=== PATIENT | female | born 1945 | race Caucasian/White ===

== ENCOUNTER 2020-11-28 21:50 | Observation (INO) ==
--- NOTE | 2020-11-28 22:30 | Emergency Department Note ---
Impression & Plan Retrosternal chest pain, SOB (shortness of breath), Acute electrocardiogram changes ED Provider Note INFORMANT: Patient and ED PROVIDER(S): Abhinav Avalos MD CHIEF COMPLAINT: Allergic reaction PLAN: Disposition: Admitted Condition: Good Outpatient prescription management: None Referral: none MEDICAL DECISION MAKING: The patient presented because of complaints of possible allergic reaction. She will noted chest pain and tightness with shortness of breath and felt it was r elated to the type food that she was eating. The patient described an overwhelming sense of impending doom during the episode. There was nothing from a symptomatic standpoint to support allergic reaction otherwise. The patient had prehospital monitoring performed. Her inferolateral ST and T wave segments were abnormal. She had T wave inversions inferiorly and some depression inferolaterally. Her ECG performed here when she was symptom-free showed resolution of those issues. The patient did receive aspirin prehospital. Currently she is doing well. Her CBC, chemistry panel, LFTs, lipase and troponin were negative. She will need further management in the hospital. I discussed this with her . They were in agreement. Consultation was made with Dr. Kleber Cote of the [facility] service. Patient was evaluated in the ER for further management. Triage Nursing notes reviewed and agree them. Vital Signs: reviewed and remarkable for no significant abnormalities Differential diagnosis: Allergic reaction, Cardiac ischemia, aortic dissection, pulmonary embolism, pneumothorax, pneumonia, pericarditis, myocarditis, esophageal rupture, GERD, cholecystitis, pancreatitis, musculoskeletal, as well as other pathologies. Diagnostics interpreted by me: ECG: Rate: 67 Rhythm:Normal sinus [place]:Normal QRS:Normal ST segements:No elevation or depression Other:No PACs or PVCs Cardiac Monitoring: Cardiac monitoring ordered by me: The patient was placed on continuous cardiac monitoring and observed. It revealed a normal sinus rhythm at 70 beats per minute without ectopy or evidence of dysrhythmia. Imaging studies: Chest x-ray. Findings: A chest x-ray was performed and revealed no pneumothorax, effusion, infiltrate, pulmonary edema, free air under the diaphragm, or wide mediastinum. Impression: No acute disease. HPI: The patient is a 74 year old female who presents to the Emergency Room with complaints of chest tightness. This started tonight and occurred after eating taiwanese food. The patient also notes the following associated symptoms, SOB, throat tightness. The patient has been benadryl and aspirin by EMS relieving factors. Current pain is rated as 10/10. Pt denies LOC, headache, fevers, chills, diaphoresis, visual changes, neck pain, nausea, vomiting, abdominal pain, back pain, melena, hematochezia, urinary symptoms, numbness, weakness, lymphadenopathy, rash, or other complaints. ROS: See above HPI for pertinent positives & negatives. A total of 10 systems reviewed and were otherwise negative. PAST MEDICAL HISTORY:See Below , MS PAST SURGICAL HISTORY:See Below, FAMILY HISTORY:See Below SOCIAL HISTORY:See Below, Quit smoking HOME MEDICATIONS:See Below ALLERGIES:See Below VITALS:See Below PHYSICAL EXAMINATION: GENERAL: Awake, tired-appearing, in no distress HENT: Normocephalic, atraumatic. Oropharynx unremarkable. EYES: Normal conjunctiva. Sclera non-icteric. NECK: Inspection normal. Non-tender. Supple. No nuchal rigidity. FROM. No masses. RESPIRATORY: Clear to auscultation. No wheezes. No rales. Normal respiratory effort. CARDIAC: Normal rate. Normal rhythm. No murmurs. No rubs. Extremities warm and well perfused. Pulses equal. No JVD. GI: Soft, non-distended. No tenderness to palpation. No rebound or guarding. No masses. RECTAL: Deferred. MUSCULOSKELETAL: Atraumatic. Chest examination reveals no tenderness. The back is symmetrical on inspection without obvious abnormality. There is no CVA tenderness to palpation. No joint edema. LOWER EXTREMITIES: Calves are equal size bilaterally and non-tender. No edema. No discoloration. NEURO: Normal sensorium. No sensory or motor deficits noted. SKIN: No rash or jaundice noted. Abhinav Avalos MD Past Med/Surg History Social History Smoking Status: Former smoker Results & Data (ED) Vital Signs Vital Signs - 24 hr 11/28/20 22:00 11/28/20 22:06 11/28/20 22:51 Temperature 36.8 C Temperature Source Oral Pulse Rate 82 Pulse Rate [Right Finger] Pulse Rhythm Regular Pulse Strength Normal Respiratory Rate 20 Respiratory Effort / Characteristics Non-Labored Respiratory Depth Normal Respiratory Pattern Regular Blood Pressure 151/90 H Blood Pressure [Right Arm] Blood Pressure Mean 110 Blood Pressure Mean [Right Arm] Blood Pressure Position Lying Pulse Oximetry 96 Oxygen Delivery Method Room Air Room Air Room Air Sepsis Recent Fever Within 48 Hours No Sepsis New/Unexplained Change in Mental Status No Sepsis Action Taken by Nursing No Action Required 11/28/20 23:20 Temperature Temperature Source Pulse Rate Pulse Rate [Right Finger] 70 Pulse Rhythm Pulse Strength Respiratory Rate 20 Respiratory Effort / Characteristics Respiratory Depth Respiratory Pattern Blood Pressure Blood Pressure [Right Arm] 117/79 Blood Pressure Mean Blood Pressure Mean [Right Arm] 91 Blood Pressure Position Pulse Oximetry 97 Oxygen Delivery Method Room Air Sepsis Recent Fever Within 48 Hours Sepsis New/Unexplained Change in Mental Status Sepsis Action Taken by Nursing Laboratory Data Result diagrams: 11/28/20 22:43 11/28/20 22:43 Lab Results 11/28/20 11/28/20 11/28/20 Range/Units 22:43 22:43 22:43 WBC 3.95 L (4.8-10.8) K/uL RBC 3.92 L (4.2-5.4) M/uL Hgb 12.4 (12.0-16.0) g/dL Hct 37.1 (37-47) % MCV 94.6 (80-100) fL MCH 31.6 (25-34) pg MCHC 33.4 (32-36) g/dL RDW Std Deviation 44.1 (36.4-46.3) fL RDW Coeff of Eulalio 12.8 (11.5-14.5) % Plt Count 210 (130-400) K/uL MPV 10.4 (7.4-10.4) fL Immature Gran % (Auto) 0.3 % Neut % (Auto) 54.3 % Lymph % (Auto) 28.4 % [place] % (Auto) 10.1 % Eos % (Auto) 6.6 % Baso % (Auto) 0.3 % Neut # (Auto) 2.15 (1.4-6.5) K/uL Lymph # (Auto) 1.12 L (1.2-3.4) K/uL [place] # (Auto) 0.40 (0.11-0.59) K/uL Eos # (Auto) 0.26 (0-0.5) K/uL Baso # (Auto) 0.01 (0-0.2) K/uL Immature Gran # (Auto) 0.01 (0.00-0.02) K/uL APTT 33.6 H (21.0-31.0) Seconds PTT Ratio 1.3 Sodium 141 (136-145) mmol/L Potassium 3.5 (3.5-5.1) mmol/L Chloride 107 (98-107) mmol/L Carbon Dioxide 27 (21-32) mmol/L Anion Gap 8.0 (3-11) BUN 17 (7-18) mg/dl Creatinine 0.52 L (0.6-1.2) mg/dl Est Cr Clr Drug Dosing 77.3 ml/min Est GFR ( Amer) 110.6 ml/min Est GFR (Non-Af Amer) 95.5 ml/min BUN/Creatinine Ratio 33.3 H (10-20) Glucose 102 H (70-99) mg/dl Calcium 9.1 (8.5-10.1) mg/dl Total Bilirubin 0.3 (0.2-1) mg/dl AST 19 (15-37) U/L ALT 24 (12-78) U/L Alkaline Phosphatase 54 (45-117) U/L Troponin I < 0.015 (0-0.045) ng/ml Total Protein 7.0 (6.4-8.2) gm/dl Albumin 3.6 (3.4-5.0) gm/dl Globulin 3.4 (2.5-4.0) gm/dl Albumin/Globulin Ratio 1.1 (0.9-2) Lipase 216 (73-393) U/L COVID-19 Eval Order 11/28/20 Range/Units 23:35 WBC (4.8-10.8) K/uL RBC (4.2-5.4) M/uL Hgb (12.0-16.0) g/dL Hct (37-47) % MCV (80-100) fL MCH (25-34) pg MCHC (32-36) g/dL RDW Std Deviation (36.4-46.3) fL RDW Coeff of Eulalio (11.5-14.5) % Plt Count (130-400) K/uL MPV (7.4-10.4) fL Immature Gran % (Auto) % Neut % (Auto) % Lymph % (Auto) % [place] % (Auto) % Eos % (Auto) % Baso % (Auto) % Neut # (Auto) (1.4-6.5) K/uL Lymph # (Auto) (1.2-3.4) K/uL [place] # (Auto) (0.11-0.59) K/uL Eos # (Auto) (0-0.5) K/uL Baso # (Auto) (0-0.2) K/uL Immature Gran # (Auto) (0.00-0.02) K/uL APTT (21.0-31.0) Seconds PTT Ratio Sodium (136-145) mmol/L Potassium (3.5-5.1) mmol/L Chloride (98-107) mmol/L Carbon Dioxide (21-32) mmol/L Anion Gap (3-11) BUN (7-18) mg/dl Creatinine (0.6-1.2) mg/dl Est Cr Clr Drug Dosing ml/min Est GFR ( Amer) ml/min Est GFR (Non-Af Amer) ml/min BUN/Creatinine Ratio (10-20) Glucose (70-99) mg/dl Calcium (8.5-10.1) mg/dl Total Bilirubin (0.2-1) mg/dl AST (15-37) U/L ALT (12-78) U/L Alkaline Phosphatase (45-117) U/L Troponin I (0-0.045) ng/ml Total Protein (6.4-8.2) gm/dl Albumin (3.4-5.0) gm/dl Globulin (2.5-4.0) gm/dl Albumin/Globulin Ratio (0.9-2) Lipase (73-393) U/L COVID-19 Eval Order Covid19 at [facility] Discharge Plan Visit Data Chief Complaint: Allergic Reaction Stated Complaint: SHORT OF BREATH/CHEST TIGHTNESS ED Provider: Abhinav Avalos Discharge Problem: Retrosternal chest pain, SOB (shortness of breath), Acute electrocardiogram changes Forms Stand Alone Forms: [facility] Referrals Referrals: PCP,NO [Primary Care Provider] -
[2020-11-28 22:56] LABS: Basophils # (auto) 0.01 K/uL (0-0.2); Basophils % (auto) 0.3 %; Eosinophils # (auto) 0.26 K/uL (0-0.5); Eosinophils % (auto) 6.6 %; Hematocrit (blood only) 37.1 % (37-47); Hemoglobin 12.4 g/dL (12.0-16.0); Immature Granulocytes # (auto) 0.01 K/uL (0.00-0.02); Immature Granulocytes % (auto) 0.3 %; Lymphocytes # (auto) 1.12 K/uL (1.2-3.4); Lymphocytes % (auto) 28.4 %; Mean Corpuscular Hemoglobin 31.6 pg (25-34); Mean Corpuscular Hgb Conc 33.4 g/dL (32-36); Mean Corpuscular Volume 94.6 fL (80-100); Mean Platelet Volume 10.4 fL (7.4-10.4); Monocytes % (auto) 10.1 %; Neutrophils # (auto) 2.15 K/uL (1.4-6.5); Neutrophils % (auto) 54.3 %; Platelet Count 210 K/uL (130-400); RDW Coefficient of Variation 12.8 % (11.5-14.5); RDW Standard Deviation 44.1 fL (36.4-46.3); Red Blood Count 3.92 M/uL (4.2-5.4); White Blood Count 3.95 K/uL (4.8-10.8)
[2020-11-28 23:15] LABS: Alanine Aminotransferase 24 U/L (12-78); Albumin Level 3.6 gm/dl (3.4-5.0); Aspartate Aminotransferase 19 U/L (15-37); BUN Creatinine Ratio 33.3 (10-20); Blood Urea Nitrogen 17 mg/dl (7-18); Calcium 9.1 mg/dl (8.5-10.1); Carbon Dioxide 27 mmol/L (21-32); Chloride 107 mmol/L (98-107); Creatinine Clr Calc Pharmacy 77.3 ml/min; Est GFR (African American) 110.6 ml/min; Est GFR (Non-African American) 95.5 ml/min; Glucose 102 mg/dl (70-99); Lipase 216 U/L (73-393); Potassium 3.5 mmol/L (3.5-5.1); Sodium 141 mmol/L (136-145)
[2020-11-28 23:16] LABS: Partial Thromboplastin Ratio 1.3; Partial Thromboplastin Time 33.6 Seconds (21.0-31.0)
[2020-11-28 23:20] LABS: Albumin Globulin Ratio 1.1 (0.9-2); Alkaline Phosphatase 54 U/L (45-117); Bilirubin,Total 0.3 mg/dl (0.2-1); Globulin 3.4 gm/dl (2.5-4.0); Troponin I < 0.015 ng/ml (0-0.045)
[2020-11-29] MEDS ORDERED: ACETAMINOPHEN 500 MG TAB PO PRN (01:19)
--- NOTE | 2020-11-29 01:22 | Hospitalist Progress Note ---
Date of Service November 29, 2020 Assessment & Plan (1) SOB (shortness of breath): (2) Acute electrocardiogram changes: Subjective 74-year-old female with no specific past medical history presents for evaluation of chest pain and tightness with associated shortness of breath. Patient has been in her usual state of health denying any recent constitutional symptoms including fever, chills, nausea, vomiting, chest pressure, chest pain, shortness of breath, focal neurological symptoms. She has never eaten Brazilian food before. This evening she was eating Brazilian food when she tried her 's spicy Brazilian food and shortly after began to experience the symptoms for which she presented. She described the symptoms as chest pain and tightness with associated shortness of breath, there was no abnormal feelings in her left arm, impending sense of doom, sensation that something was sitting on her chest, or changes with exertion. The patient had prehospital monitoring performed demonstrating inferior lateral ST and T wave segment abnormalities and T wave inversions inferiorly with depressions inferior laterally. [place] arrival [place] [facility] her symptoms had resolved completely. ECG obtained in the emergency department demonstrated heart rate of 67, normal sinus rhythm, no ST segment elevation or depressions, normal T waves. Routine labs were obtained including a CBC, Chem-7, LFTs, lipase, and troponin all of which were negative. Given her EKG findings consistent with ischemia the hospital service was consulted for admission. Review of Systems Review of Systems: All systems reviewed & are unremarkable except as noted in HPI & below Physical Exam Physical Exam: General: No acute distress HEENT: Normocephalic atraumatic Neck: No significant lymphadenopathy, trachea midline, normal to visual inspection Cardiac: Regular rate and rhythm, normal S1, normal S2, I did not appreciated any significant murmurs rubs or gallops, I did not appreciate any significant pedal edema, No calf tenderness, capillary refill is less than 3 seconds Respiratory: Clear to auscultation bilaterally with symmetrical chest rise, I did not appreciate any significant wheezes, rales, rhonchi, no increased work of breathing GI: Normal bowel sounds, soft, nontender in all 4 quadrants, nondistended MSK: No sensory or motor changes, moves all extremities without issue, extremities are warm and well-perfused Skin: [place], clean, dry, intact. Neuro: Alert and oriented x4 Psych: Calm, cooperative, logical thought process Results & Data Results & Data ([facility]) Vital Signs (Past 12 Hours) Vital Signs Temp Pulse Pulse Resp BP BP Pulse Ox 11/28/20 23:20 70 20 117/79 97 11/28/20 22:00 36.8 C 82 20 151/90 H 96 Laboratory Results 11/28/20 11/28/20 11/28/20 Range/Units 23:35 23:35 22:43 WBC (4.8-10.8) K/uL RBC (4.2-5.4) M/uL Hgb (12.0-16.0) g/dL Hct (37-47) % MCV (80-100) fL MCH (25-34) pg MCHC (32-36) g/dL RDW Std Deviation (36.4-46.3) fL RDW Coeff of Eulalio (11.5-14.5) % Plt Count (130-400) K/uL MPV (7.4-10.4) fL Immature Gran % (Auto) % Neut % (Auto) % Lymph % (Auto) % [place] % (Auto) % Eos % (Auto) % Baso % (Auto) % Neut # (Auto) (1.4-6.5) K/uL Lymph # (Auto) (1.2-3.4) K/uL [place] # (Auto) (0.11-0.59) K/uL Eos # (Auto) (0-0.5) K/uL Baso # (Auto) (0-0.2) K/uL Immature Gran # (Auto) (0.00-0.02) K/uL APTT (21.0-31.0) Seconds PTT Ratio Sodium 141 (136-145) mmol/L Potassium 3.5 (3.5-5.1) mmol/L Chloride 107 (98-107) mmol/L Carbon Dioxide 27 (21-32) mmol/L Anion Gap 8.0 (3-11) BUN 17 (7-18) mg/dl Creatinine 0.52 L (0.6-1.2) mg/dl Est Cr Clr Drug Dosing 77.3 ml/min Est GFR ( Amer) 110.6 ml/min Est GFR (Non-Af Amer) 95.5 ml/min BUN/Creatinine Ratio 33.3 H (10-20) Glucose 102 H (70-99) mg/dl Calcium 9.1 (8.5-10.1) mg/dl Total Bilirubin 0.3 (0.2-1) mg/dl AST 19 (15-37) U/L ALT 24 (12-78) U/L Alkaline Phosphatase 54 (45-117) U/L Troponin I < 0.015 (0-0.045) ng/ml Total Protein 7.0 (6.4-8.2) gm/dl Albumin 3.6 (3.4-5.0) gm/dl Globulin 3.4 (2.5-4.0) gm/dl Albumin/Globulin Ratio 1.1 (0.9-2) Lipase 216 (73-393) U/L COVID-19 Eval Order Covid19 at [facility] SARS-CoV-2 (PCR) NEGATIVE (Negative) 11/28/20 11/28/20 Range/Units 22:43 22:43 WBC 3.95 L (4.8-10.8) K/uL RBC 3.92 L (4.2-5.4) M/uL Hgb 12.4 (12.0-16.0) g/dL Hct 37.1 (37-47) % MCV 94.6 (80-100) fL MCH 31.6 (25-34) pg MCHC 33.4 (32-36) g/dL RDW Std Deviation 44.1 (36.4-46.3) fL RDW Coeff of Eulalio 12.8 (11.5-14.5) % Plt Count 210 (130-400) K/uL MPV 10.4 (7.4-10.4) fL Immature Gran % (Auto) 0.3 % Neut % (Auto) 54.3 % Lymph % (Auto) 28.4 % [place] % (Auto) 10.1 % Eos % (Auto) 6.6 % Baso % (Auto) 0.3 % Neut # (Auto) 2.15 (1.4-6.5) K/uL Lymph # (Auto) 1.12 L (1.2-3.4) K/uL [place] # (Auto) 0.40 (0.11-0.59) K/uL Eos # (Auto) 0.26 (0-0.5) K/uL Baso # (Auto) 0.01 (0-0.2) K/uL Immature Gran # (Auto) 0.01 (0.00-0.02) K/uL APTT 33.6 H (21.0-31.0) Seconds PTT Ratio 1.3 Sodium (136-145) mmol/L Potassium (3.5-5.1) mmol/L Chloride (98-107) mmol/L Carbon Dioxide (21-32) mmol/L Anion Gap (3-11) BUN (7-18) mg/dl Creatinine (0.6-1.2) mg/dl Est Cr Clr Drug Dosing ml/min Est GFR ( Amer) ml/min Est GFR (Non-Af Amer) ml/min BUN/Creatinine Ratio (10-20) Glucose (70-99) mg/dl Calcium (8.5-10.1) mg/dl Total Bilirubin (0.2-1) mg/dl AST (15-37) U/L ALT (12-78) U/L Alkaline Phosphatase (45-117) U/L Troponin I (0-0.045) ng/ml Total Protein (6.4-8.2) gm/dl Albumin (3.4-5.0) gm/dl Globulin (2.5-4.0) gm/dl Albumin/Globulin Ratio (0.9-2) Lipase (73-393) U/L COVID-19 Eval Order SARS-CoV-2 (PCR) (Negative) Resident Activity Tracking Resident Involvement: Resident Care Provided Care Provided: Adult Hospital Medicine
[2020-11-29] MEDS ORDERED: PATIENT'S ALLERGY INFO NEEDS ENTERED SCH (01:30)
--- NOTE | 2020-11-29 01:30 | History & Physical Report ---
Date of Service November 29, 2020 Assessment & Plan (1) SOB (shortness of breath): (2) Acute electrocardiogram changes: History of Present Illness Chief Complaint: 74-year-old female with no specific past medical history presents for evaluation of chest pain and tightness with associated shortness of breath. Patient has been in her usual state of health denying any recent constitutional symptoms including fever, chills, nausea, vomiting, chest pressure, chest pain, shortness of breath, focal neurological symptoms. She has never eaten [place] food before. This evening she was eating [place] food when she tried her 's spicy [place] food and shortly after began to experience the symptoms for which she presented. She described the symptoms as chest pain and tightness with associated shortness of breath, there was no abnormal feelings in her left arm, impending sense of doom, sensation that something was sitting on her chest, or changes with exertion. The patient had prehospital monitoring performed demonstrating inferior lateral ST and T wave segment abnormalities and T wave inversions inferiorly with depressions inferior laterally. [facility] arrival [facility] her symptoms had resolved completely. ECG obtained in the emergency department demonstrated heart rate of 67, normal sinus rhythm, no ST segment elevation or depressions, normal T waves. Routine labs were obtained including a CBC, Chem-7, LFTs, lipase, and troponin all of which were negative. Given her EKG findings consistent with ischemia the hospital service was consulted for admission. Primary Care Provider: NO PCP Allergies Allergy/AdvReac Type Severity Reaction Status Date / Time No Known Allergies Allergy Unverified 11/29/20 01:59 Home Medications Medication Instructions Recorded Confirmed Type albuterol sulfate 90 mcg/actuation 1 inh INHALATION Q6H PRN #6.7 g 11/29/20 Rx aerosol inhaler (ProAir HFA) Past Med/Surg History Medical History (Updated 11/30/20 @ 00:09 by Gideon Paul) Retrosternal chest pain Social History Smoking Status: Former smoker Second Hand Exposure: No; Do You Dip or Chew Tobacco: No; Tobacco Cessation Education Requested by Patient: No Hx Alcohol Use: Yes Alcohol type: wine Hx Substance Use: No Preferred Language: Nepali Communication Ability: Effective 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 Beliefs That Will Affect Care: None marital status: Current Living Situation: Spouse Other Information That Helps Us Care for You: No Feels Safe at Home: Yes Safety Concerns: Feels Safe At This Time Assistive Devices: None Review of Systems Review of Systems: All systems reviewed & are unremarkable except as noted in HPI & below Physical Exam Physical Exam: General: No acute distress HEENT: Normocephalic atraumatic Neck: No significant lymphadenopathy, trachea midline, normal to visual inspection Cardiac: Regular rate and rhythm, normal S1, normal S2, I did not appreciated any significant murmurs rubs or gallops, I did not appreciate any significant pedal edema, No calf tenderness, capillary refill is less than 3 seconds Respiratory: Clear to auscultation bilaterally with symmetrical chest rise, I did not appreciate any significant wheezes, rales, rhonchi, no increased work of breathing GI: Normal bowel sounds, soft, nontender in all 4 quadrants, nondistended MSK: No sensory or motor changes, moves all extremities without issue, extremities are warm and well-perfused Skin: [place], clean, dry, intact. Neuro: Alert and oriented x4 Psych: Calm, cooperative, logical thought process Results & Data Results & Data ([facility]) Vital Signs (Past 12 Hours) Vital Signs Temp Pulse Pulse Resp BP BP Pulse Ox 11/29/20 01:00 61 20 146/88 H 97 11/28/20 23:20 70 20 117/79 97 11/28/20 22:00 36.8 C 82 20 151/90 H 96 Laboratory Results 11/28/20 11/28/20 11/28/20 Range/Units 23:35 23:35 22:43 WBC (4.8-10.8) K/uL RBC (4.2-5.4) M/uL Hgb (12.0-16.0) g/dL Hct (37-47) % MCV (80-100) fL MCH (25-34) pg MCHC (32-36) g/dL RDW Std Deviation (36.4-46.3) fL RDW Coeff of Eulalio (11.5-14.5) % Plt Count (130-400) K/uL MPV (7.4-10.4) fL Immature Gran % (Auto) % Neut % (Auto) % Lymph % (Auto) % [place] % (Auto) % Eos % (Auto) % Baso % (Auto) % Neut # (Auto) (1.4-6.5) K/uL Lymph # (Auto) (1.2-3.4) K/uL [place] # (Auto) (0.11-0.59) K/uL Eos # (Auto) (0-0.5) K/uL Baso # (Auto) (0-0.2) K/uL Immature Gran # (Auto) (0.00-0.02) K/uL APTT (21.0-31.0) Seconds PTT Ratio Sodium 141 (136-145) mmol/L Potassium 3.5 (3.5-5.1) mmol/L Chloride 107 (98-107) mmol/L Carbon Dioxide 27 (21-32) mmol/L Anion Gap 8.0 (3-11) BUN 17 (7-18) mg/dl Creatinine 0.52 L (0.6-1.2) mg/dl Est Cr Clr Drug Dosing 77.3 ml/min Est GFR ( Amer) 110.6 ml/min Est GFR (Non-Af Amer) 95.5 ml/min BUN/Creatinine Ratio 33.3 H (10-20) Glucose 102 H (70-99) mg/dl Calcium 9.1 (8.5-10.1) mg/dl Total Bilirubin 0.3 (0.2-1) mg/dl AST 19 (15-37) U/L ALT 24 (12-78) U/L Alkaline Phosphatase 54 (45-117) U/L Troponin I < 0.015 (0-0.045) ng/ml Total Protein 7.0 (6.4-8.2) gm/dl Albumin 3.6 (3.4-5.0) gm/dl Globulin 3.4 (2.5-4.0) gm/dl Albumin/Globulin Ratio 1.1 (0.9-2) Lipase 216 (73-393) U/L COVID-19 Eval Order Covid19 at [facility] SARS-CoV-2 (PCR) NEGATIVE (Negative) 11/28/20 11/28/20 Range/Units 22:43 22:43 WBC 3.95 L (4.8-10.8) K/uL RBC 3.92 L (4.2-5.4) M/uL Hgb 12.4 (12.0-16.0) g/dL Hct 37.1 (37-47) % MCV 94.6 (80-100) fL MCH 31.6 (25-34) pg MCHC 33.4 (32-36) g/dL RDW Std Deviation 44.1 (36.4-46.3) fL RDW Coeff of Eulalio 12.8 (11.5-14.5) % Plt Count 210 (130-400) K/uL MPV 10.4 (7.4-10.4) fL Immature Gran % (Auto) 0.3 % Neut % (Auto) 54.3 % Lymph % (Auto) 28.4 % [place] % (Auto) 10.1 % Eos % (Auto) 6.6 % Baso % (Auto) 0.3 % Neut # (Auto) 2.15 (1.4-6.5) K/uL Lymph # (Auto) 1.12 L (1.2-3.4) K/uL [place] # (Auto) 0.40 (0.11-0.59) K/uL Eos # (Auto) 0.26 (0-0.5) K/uL Baso # (Auto) 0.01 (0-0.2) K/uL Immature Gran # (Auto) 0.01 (0.00-0.02) K/uL APTT 33.6 H (21.0-31.0) Seconds PTT Ratio 1.3 Sodium (136-145) mmol/L Potassium (3.5-5.1) mmol/L Chloride (98-107) mmol/L Carbon Dioxide (21-32) mmol/L Anion Gap (3-11) BUN (7-18) mg/dl Creatinine (0.6-1.2) mg/dl Est Cr Clr Drug Dosing ml/min Est GFR ( Amer) ml/min Est GFR (Non-Af Amer) ml/min BUN/Creatinine Ratio (10-20) Glucose (70-99) mg/dl Calcium (8.5-10.1) mg/dl Total Bilirubin (0.2-1) mg/dl AST (15-37) U/L ALT (12-78) U/L Alkaline Phosphatase (45-117) U/L Troponin I (0-0.045) ng/ml Total Protein (6.4-8.2) gm/dl Albumin (3.4-5.0) gm/dl Globulin (2.5-4.0) gm/dl Albumin/Globulin Ratio (0.9-2) Lipase (73-393) U/L COVID-19 Eval Order SARS-CoV-2 (PCR) (Negative) Code Status & VTE Plan Code Status full VTE Prophylaxis Plan VTE Prophylaxis will be ordered: Yes Supervising Physician Co-Signing Physician Notes Attending addendum: I have physically seen this patient, have supervised the medical residents activities, and agree with the H&P unless as otherwise noted. Assessment and Plan: Substernal chest discomfort/reversible inferior lateral changes on EKG- The patient will be admitted to telemetry for serial cardiac enzymes, serial EKG's, cardiac rhythm monitoring and a 2-D echocardiogram with Dopplers. Check a fasting lipid panel and hemoglobin A1c Given 324 mg aspirin in the ED, will continue 81 mg daily Remaining orders and notations as noted
[2020-11-29] MEDS ORDERED: ENOXAPARIN INJ 40 MG/0.4 ML SYR SQ SCH (06:00)
[2020-11-29 07:39] LABS: Basophils # (auto) 0.01 K/uL (0-0.2); Basophils % (auto) 0.2 %; Eosinophils # (auto) 0.32 K/uL (0-0.5); Eosinophils % (auto) 7.3 %; Hematocrit (blood only) 37.4 % (37-47); Hemoglobin 12.5 g/dL (12.0-16.0); Immature Granulocytes # (auto) 0.03 K/uL (0.00-0.02); Immature Granulocytes % (auto) 0.7 %; Lymphocytes # (auto) 1.36 K/uL (1.2-3.4); Lymphocytes % (auto) 30.9 %; Mean Corpuscular Hemoglobin 31.7 pg (25-34); Mean Corpuscular Hgb Conc 33.4 g/dL (32-36); Mean Corpuscular Volume 94.9 fL (80-100); Mean Platelet Volume 10.7 fL (7.4-10.4); Monocytes # (auto) 0.47 K/uL (0.11-0.59); Monocytes % (auto) 10.7 %; Neutrophils # (auto) 2.21 K/uL (1.4-6.5); Neutrophils % (auto) 50.2 %; Platelet Count 207 K/uL (130-400); RDW Coefficient of Variation 12.9 % (11.5-14.5); Red Blood Count 3.94 M/uL (4.2-5.4)
[2020-11-29 07:47] LABS: Estimated Average Glucose 114 mg/dl; Hemoglobin A1C 5.6 % (4.5-5.6)
--- NOTE | 2020-11-29 08:10 | XRay Report ---
XR chest 1V portable HISTORY: Atypical chest pain. Shortness of breath. COMPARISON: None. FINDINGS: No pneumothorax. No pleural effusions. The heart is normal in size. There is mild diffuse i nterstitial thickening which is likely chronic. Old, healed left humeral neck fracture. Possible 1.3 cm nodular density within the right lower lobe. A few linear densities within the right lung apex fav ors scarring. IMPRESSION: 1. No acute process within the chest. 2. A possible 1.3 cm nodule within the right lower lobe. Follow-up nonemergent chest CT recommended t o exclude the possibility of a pulmonary lesion. ACT 112: Negative or not required by law. Electronically signed by: Marcel Gibson M.D. 11/29/2020 8:08 AM
[2020-11-29 08:12] LABS: Calcium 8.5 mg/dl (8.5-10.1); Creatinine Clr Calc Pharmacy 86.6 ml/min; Est GFR (African American) 115.2 ml/min; Est GFR (Non-African American) 99.4 ml/min; Potassium 3.7 mmol/L (3.5-5.1)
[2020-11-29] MEDS ORDERED: POLYETHYLENE (MIRALAX) 17 GM PACK PO SCH (09:00)
[2020-11-29] MEDS ORDERED: ASPIRIN 81 MG ECTAB PO SCH (09:00)
--- NOTE | 2020-11-29 09:11 | Hospitalist Progress Note ---
Date of Service November 29, 2020 Assessment & Plan Admission and Anticipated Discharge Date Admission Date: November 29, 2020 Subjective BRIDGE NOTE: ADMITTED AFTER MIDNIGHT Results & Data Results & Data ([facility]) Vital Signs (Past 12 Hours) Vital Signs Temp Pulse Pulse Resp BP BP BP 11/29/20 08:08 37.0 C 56 L 20 129/73 11/29/20 03:12 62 11/29/20 03:00 36.6 C 62 20 143/85 H 11/29/20 01:00 61 20 146/88 H 11/28/20 23:20 70 20 117/79 11/28/20 22:00 36.8 C 82 20 151/90 H Pulse Ox 11/29/20 08:08 98 11/29/20 03:12 11/29/20 03:00 95 11/29/20 01:00 97 11/28/20 23:20 97 11/28/20 22:00 96 PG Care Time/CCT Total # of Minutes Spent Total Time Spent with Patient: Total time spent is greater than 50% in coordination of care (as documented) at patient's floor/unit and/or counseling patient: Coding
--- NOTE | 2020-11-29 10:39 | Electrocardiogram Report ---
Test Reason : Blood Pressure : / mmHG Vent. Rate : 067 BPM Atrial Rate : 067 BPM P-R Int : 156 ms QRS Dur : 094 ms QT Int : 420 ms P-R-T Axes : 062 053 023 degrees QTc Int : 443 ms Normal sinus rhythm Normal ECG No previous ECGs available Confirmed by Fernando Douglas ([id number]) on 11/29/2020 10:39:19 AM Referred By: REFERRED SELF Confirmed By:Fernando Douglas
--- NOTE | 2020-11-29 10:54 | Discharge Summary ---
Date of Service November 29, 2020 Admission HPI Per Admitting Provider Chief Complaint: 74-year-old female with no specific past medical history presents for evaluation of chest pain and tightness with associated shortness of breath. Patient has been in her usual state of health denying any recent constitutional symptoms including fever, chills, nausea, vomiting, chest pressure, chest pain, shortness of breath, focal neurological symptoms. She has never eaten [place] food before. This evening she was eating [place] food when she tried her 's spicy [place] food and shortly after began to experience the symptoms for which she presented. She described the symptoms as chest pain and tightness with associated shortness of breath, there was no abnormal feelings in her left arm, impending sense of doom, sensation that something was sitting on her chest, or changes with exertion. The patient had prehospital monitoring performed demonstrating inferior lateral ST and T wave segment abnormalities and T wave inversions inferiorly with depressions inferior laterally. Upon arrival to [facility] any emergency department her symptoms had resolved completely. ECG obtained in the emergency department demonstrated heart rate of 67, normal sinus rhythm, no ST segment elevation or depressions, normal T waves. Routine labs were obtained including a CBC, Chem-7, LFTs, lipase, and troponin all of which were negative. Given her EKG findings consistent with ischemia the hospital service was consulted for admission. Primary Care Provider: NO PCP Admission Exam Per Admitting Provider General: No acute distress HEENT: Normocephalic atraumatic Neck: No significant lymphadenopathy, trachea midline, normal to visual inspection Cardiac: Regular rate and rhythm, normal S1, normal S2, I did not appreciated any significant murmurs rubs or gallops, I did not appreciate any significant pedal edema, No calf tenderness, capillary refill is less than 3 seconds Respiratory: Clear to auscultation bilaterally with symmetrical chest rise, I did not appreciate any significant wheezes, rales, rhonchi, no increased work of breathing GI: Normal bowel sounds, soft, nontender in all 4 quadrants, nondistended MSK: No sensory or motor changes, moves all extremities without issue, extremities are warm and well-perfused Skin: [place], clean, dry, intact. Neuro: Alert and oriented x4 Psych: Calm, cooperative, logical thought process Principal Diagnosis Chest Pain Discharge Exam Constitutional WD/WN, vitals as above Eyes + anicteric sclerae and PERRL ENMT external ear and nose normal, oropharynx normal Neck trachea midline, no thyromegaly Respiratory normal respiratory effort, lungs clear to auscultation Cardiovascular RRR, no murmur, no edema Gastrointestinal (Abdomen) normal bowel sounds, soft, nontender, no hepatosplenomegaly Musculoskeletal no cyanosis or clubbing, extremities motor strength 5/5 Skin no rashes, warm and dry Neurologic PERRL, EOMI, accommodation nl, no face palsy, no dysarthria Psychiatric A+Ox3, euthymic affect Lymphatic no cervical or axillary lymphadenopathy Discharge Data Allergies Allergy/AdvReac Type Severity Reaction Status Date / Time No Known Allergies Allergy Unverified 11/29/20 01:59 Consultations 11/29/20 00:11 ED Decision to Admit Stat Ordered Studies Chest X-Ray 11/28/20 22:33 XR chest 1V portable HISTORY: Atypical chest pain. Shortness of breath. COMPARISON: None. FINDINGS: No pneumothorax. No pleural effusions. The heart is normal in size. There is mild diffuse interstitial thickening which is likely chronic. Old, healed left humeral neck fracture. Possible 1.3 cm nodular density within the right lower lobe. A few linear densities within the right lung apex favors scarring. IMPRESSION: 1. No acute process within the chest. 2. A possible 1.3 cm nodule within the right lower lobe. Follow-up nonemergent chest CT recommended to exclude the possibility of a pulmonary lesion. ACT 112: Negative or not required by law. Electronically signed by: Marcel Gibosn M.D. 11/29/2020 8:08 AM Hospital Course (1) Retrosternal chest pain: #Acute EKG changes with associated retrosternal chest pain and shortness of breath concerning for ACS Patient presenting to the emergency department with EKG changes in the field which resolved on presentation the emergency department. In the emergency department she was completely asymptomatic, relating a story as eating some of her 's [place] food and felt a tightness. No wheezing but did have gurgling sensation. No hx reflux. EKG pre-hospital with reported ST changes, however discussion with patient and her niece as RN indicated lead placement may have been incorrect. EKG on admission NSR without abn Trop negative x 3 No stress echo on weekend --> discussed with patient and given symptom free without risk factors, can follow up locally in [place] with outpatient stress. No murmurs on examination A1c wnl Lipid panel acceptable Telemetry without arrhythmia Of note, CXR did note 1.3cm nodule and discussed with patient given her smoking history (30 years on and off and quit x past 15 years) she should have non- emergent f/u CT Chest per her PCP to r/o possibility of pulmonary lesion. 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 Discussed with cardiology director of construction and felt outpatient stress more than reasonable given negative troponin and symptoms not alarming for ACS. Given copy of chart prior to discharge to take to her PCP. (2) SOB (shortness of breath): (3) Acute electrocardiogram changes: Total Time Total Time Spent Total Time Spent (In Minutes): 60 Discharge Plan Discharge Items Patient Disposition: Home - Self-Care Reason For Visit: CP R/O Discharge Diagnosis: Chest Pain Goals: You have been hospitalized for an acute medical problem. During your stay at [facility], we have made an effort to correct the problem that brought you to the hospital while keeping you as comfortable as possible. Medications were used to bring your condition under control and your discharge instructions will include directions for any medications you should take after leaving the hospital. Please make sure you see your Primary Care Provider as part of your follow up plan. Activity: Resume your previous activity Non-emergency contact: Primary Care Provider Call non-emergency contact if: you have any medication questions and your symptoms worsen Follow-up/Referrals: PCP,NO [Primary Care Provider] - Diet: Heart Healthy Addtl Attending Provider Instructions: You have been hospitalized for chest pain and EKG changes. As discussed, EKG changes may have been due to lead placement, and repeat EKG during admission looked good. Troponin (enzyme we check for damage to heart tissue) were checked and negative on multiple draws. Exercise stress testing not available during weekend, and given lack of convincing evidence for acute coronary syndrome, it is recommended you follow up with your PCP to discuss about an outpatient stress echo in the future. As discussed, there is a 1.3cm nodule in your right lung, and given your history of smoking, it is advised to have non-emergent CT of the chest to further mon itor on outpatient basis. Please follow up with your PCP in the next week to monitor your progress after hospitalization. you have been sent an albuterol inhaler to use as needed for tightness as this could have possibly been allergic reaction vs reflux type discomfort and you may want to consider over the counter pepcid in the future if having spicy foods. You can also consider starting daily baby aspirin 81mg daily for primary prevention unless you have issues with bleeding. Please return to the closest emergency department with any further chest pain, shortness of breath, nausea, vomiting, or for any other symptoms that are concerning for you. It has been a pleasure being a part of the medical team providing for you while you have been in the hospital. Take care! Pending Studies at Discharge: No Stand-Alone Forms: [facility] Medications and DC Order Prescriptions: New albuterol sulfate [ProAir HFA] 90 mcg/actuation HFA aerosol inhaler 1 inh inhalation Q6H PRN (Reason: shortness of breath or wheezing) Qty: 6.7 RF: 0 Discharge Orders: Discharge Order (Routine); Ordered 11/29/20 Ordered By: Amanda Rojas Admission Data Admit Date/Time: 11/29/20 01:21 Attending Provider: Neel Avina Admit Provider: Tate Christensen I. Primary Care Provider: PCP,NO Other Providers: Kleber Cote Other Interventions: Discharge Summary Assessment (RN) Last Done: 11/29/20 11:38 Coding Level of Care Code 41206 OBS Care - Discharge Diagnoses Retrosternal chest pain R07.2 SOB (shortness of breath) R06.02 Acute electrocardiogram changes R94.31
--- NOTE | 2020-11-30 00:18 | Billing Data ---
Date of Service November 30, 2020 Coding Level of Care Code INT OBSERVATION CARE 70M LVL 3
== END 2020-11-29 13:05 | disposition home or self-care (01) ==
LOC: 2N 21:50 → ED 21:50 → SUATTDRO 11-29 01:21 → 2N 11-29 02:29